=== PATIENT | male | born 1980 | race Caucasian/White ===

== ENCOUNTER 2018-06-25 12:28 | Emergency (ER) | payer SELFPAY | END 2018-06-25 13:22 | disposition left against medical advice (07) | LOC: ER 12:28 | DX: T14.8XXA Other injury of unspecified body region, initial encounter (principal); Z53.21 Procedure and treatment not carried out due to patient leaving prior to being seen by health care provider; X58.XXXA Exposure to other specified factors, initial encounter; Y93.89 Activity, other specified; Y92.89 Other specified places as the place of occurrence of the external cause; Y99.8 Other external cause status ==

== ENCOUNTER 2018-11-23 17:17 | Emergency (ER) | payer OTHER ==
[~2018-11-23] VITALS: Ht 180.3 cm; Wt 77.0 kg
[2018-11-23 17:30] VITALS: BP 129/88
== END 2018-11-23 23:00 | disposition left against medical advice (07) ==
LOC: ER 17:17
DX: M25.531 Pain in right wrist (principal); Z53.21 Procedure and treatment not carried out due to patient leaving prior to being seen by health care provider